=== PATIENT | male | born 1970 | race Caucasian/White ===

== ENCOUNTER 2018-11-03 20:15 | Emergency (ER) | payer BC ==
[2018-11-03] MEDS ORDERED: Acetaminophen TAB* 325 MG PO ONE (21:23)
--- NOTE | 2018-11-03 22:16 | ED ---
Upper Extremity Pain - HPI Summary HPI Summary: Patient complains of deformity and pain to fourth digit of right hand during a collision while playing hockey. Denies any other pain, injury, symptoms. No wound. - History of Current Complaint Chief Complaint: EDExtremityUpper Stated Complaint: POSS BROKEN FINGER Time Seen by Provider: 11/03/18 20:52 Hx Obtained From: Patient Mechanism Of Injury: Blunt Trauma Onset/Duration: Started Hours Ago Timing: Constant Severity Initially: Moderate Severity Currently: Moderate Pain Location: Finger Character: Dull, Aching, Throbbing Aggravating Factor(s): Movement Alleviating Factor(s): Rest, Ice Associated Signs & Symptoms: Positive: Negative - Allergies/Home Medications Allergies/Adverse Reactions: Allergies Allergy/AdvReac Type Severity Reaction Status Date / Time shellfish derived Allergy Anaphylatic Verified 11/03/18 20:26 Shock Home Medications: Home Medications NK [No Home Medications Reported] 11/03/18 [History Confirmed 11/03/18] PMH/Surg Hx/FS Hx/Imm Hx Endocrine/Hematology History: Denies: Hx Anticoagulant Therapy, Hx Diabetes, Hx Thyroid Disease Cardiovascular History: Denies: Hx Hypertension Respiratory History: Denies: Hx Asthma, Hx Chronic Obstructive Pulmonary Disease (COPD) GI History: Denies: Hx Ulcer History: Denies: Hx Dialysis, Hx Renal Disease Psychiatric History: Denies: Hx Autism - Cancer History Cancer Type, Location and Year: Prostate Infectious Disease History: Yes Infectious Disease History: Denies: Hx Clostridium Difficile, Hx Hepatitis, Hx Human Immunodeficiency Virus (HIV), Hx of Known/Suspected MRSA, Traveled Outside the [place] in Last 30 Days - Family History Known Family History: Positive: Non-Contributory - Social History Alcohol Use: Weekly Substance Use Type: Reports: None Smoking Status (MU): Never Smoked Tobacco Review of Systems Constitutional: Negative Eyes: Negative ENT: Negative Cardiovascular: Negative Respiratory: Negative Gastrointestinal: Negative Genitourinary: Negative Musculoskeletal: Other Skin: Negative Neurological: Negative Psychological: Normal All Other Systems Reviewed And Are Negative: Yes Physical Exam - Summary Physical Exam Summary: Obvious deformity to PIP joint of 4th digit of right hand. EMS intact distally. No open wound. Triage Information Reviewed: Yes Vital Signs On Initial Exam: Initial Vitals Temp Pulse Resp BP Pulse Ox 99.4 F 86 16 112/75 94 11/03/18 20:24 11/03/18 20:24 11/03/18 20:24 11/03/18 20:24 11/03/18 20:24 Vital Signs Reviewed: Yes Appearance: Positive: Well-Appearing Skin: Positive: Warm Head/Face: Positive: Normal Head/Face Inspection Eyes: Positive: Normal Neck: Positive: Supple Respiratory/Lung Sounds: Positive: Clear to Auscultation Cardiovascular: Positive: Normal Abdomen Description: Positive: Nontender Musculoskeletal: Positive: Normal Neurological: Positive: Normal Psychiatric: Positive: Normal AVPU Assessment: Alert - [place] Coma Scale Best Eye Response: 4 - Spontaneous Best Motor Response: 6 - Obeys Commands Best Verbal Response: 5 - Oriented Coma Scale Total: 15 Procedures - Joint Reduction 1 Joint Reduction Site: other Specify Other Joint Reduced: PIP joint of the fourth digit of right hand Conscious Sedation: No Reduction Attempts: 1 Pre-Procedure NV Exam: Yes Post Joint Reduction Film: joint reduced Diagnostics - Vital Signs Vital Signs Temp Pulse Resp BP Pulse Ox 11/03/18 20:24 99.4 F 86 16 112/75 94 - Laboratory Lab Statement: Any lab studies that have been ordered have been reviewed, and results considered in the medical decision making process. Course/Dx - Course Course Of Treatment: Patient complains of deformity and pain to fourth digit of right hand during a collision while playing hockey. Denies any other pain, injury, symptoms. No wound. Physical exam:Obvious deformity to PIP joint of 4th digit of right hand. EMS intact distally. No open wound. X-ray positive for dislocation of PIP joint and fourth digit of right hand. Also possible avulsion fracture of middle phalanx. PIP joint reduced without sedation and reduction confirmed by postreduction x-ray. Patient placed in a finger brace by nurse and reviewed by me. Patient advised radiology will read x-rays in the morning and patient will be called if findings warrant with recommended treatment. Patient understands and approves of plan. - Diagnoses Provider Diagnoses: Dislocation, finger closed, Closed avulsion fracture of middle phalanx of finger Discharge - Sign-Out/Discharge Documenting (check all that apply): Patient Departure - Discharge Plan Condition: Stable Disposition: HOME Patient Education Materials: Finger Dislocation (ED), Avulsion Fracture (ED) Referrals: Anahy Pickard MD [Primary Care Provider] - Antony Gayle MD [Medical Doctor] - Additional Instructions: X-ray will be read by radiology in the morning and will be called if results are different. Tylenol and ice for pain. Follow-up with orthopedics. Return to the ED for any new or worsening symptoms - Billing Disposition and Condition Condition: STABLE Disposition: Home
[2018-11-03 22:37] VITALS: BP 110/76
== END 2018-11-03 22:35 | disposition home or self-care (01) ==
LOC: ED 20:15
DX: S63.254A Unspecified dislocation of right ring finger, initial encounter (principal); S62.622A Displaced fracture of middle phalanx of right middle finger, initial encounter for closed fracture; W22.8XXA Striking against or struck by other objects, initial encounter; Y93.22 Activity, ice hockey; Y92.9 Unspecified place or not applicable
CPT/HCPCS: 26670; 73140; 99281; A9270-GY

== ENCOUNTER 2018-11-22 10:15 | Day surgery (SDC) | payer BC ==
--- NOTE | 2018-11-20 16:20 | HP ---
PREOPERATIVE HISTORY AND PHYSICAL: DATE OF ADMISSION/SURGERY: 11/22/18 DATE OF OFFICE VISIT/ENCOUNTER: 11/20/18 ATTENDING SURGEON: Alena Sultana MD.* (DICTATED BY SARAH LAWLER) PROCEDURE: Right ring finger phalanx open reduction and internal fixation. HISTORY OF PRESENT ILLNESS: This is a 48-year-old male, who sustained injury to his right ring finger playing ice hockey approximately 2 weeks ago when he collided with another player. A couple of days later, he was seen at [facility] and had an x-ray, which showed nondisplaced fracture at the PIP joint of his right ring finger. He was placed in a splint and he has been using it, but has been taking it on and off with some regularity. He is having trouble bending his finger. He denies any associated numbness or tingling. After evaluation by Dr. Sultana and review of x-rays, he has consented to proceed with surgical intervention for the fracture. PAST MEDICAL HISTORY: History of prostate cancer. PAST SURGICAL HISTORY: Prostatectomy approximately 2 weeks ago. CURRENT MEDICATIONS: None. ALLERGIES: No known drug allergies. He has an allergy to SHELLFISH. FAMILY MEDICAL HISTORY: Diabetes and prostate cancer. 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 He denies tobacco use and recreational drug use. He drinks alcohol on occasion. REVIEW OF SYSTEMS: Negative for general, cephalic, cardiovascular, respiratory , GI. : Positive for mild incontinence secondary to his recent prostatectomy. Negative for other musculoskeletal, integumentary, endocrine, neurologic, and hematologic symptoms. Infectious Diseases: Negative for MRSA, hepatitis C, HIV. PHYSICAL EXAMINATION GENERAL: Well-developed, well-nourished 48-year-old male, in no acute distress. He is alert and oriented x3. VITAL SIGNS: Height 5 feet 11 inches, weight 190 pounds. Pulse rate 60, blood pressure 112/70. HEENT: Normocephalic, atraumatic. Pupils are equal, round, and reactive to light and accommodation. Extraocular movements are intact. Throat is clear. NECK: Supple. No palpable lymph nodes. PULMONARY: Lungs are clear to auscultation bilaterally. No wheezes, rales, or rhonchi. CARDIOVASCULAR: Regular rate and rhythm. S1, S2. No murmurs, rubs, or gallops. No edema. ABDOMEN: Positive bowel sounds. Soft, nontender. NEUROLOGICAL: Alert and oriented x3. Cranial nerves II through XII are intact. Sensation is intact to light touch. MUSCULOSKELETAL: On exam of his right hand, he has significant swelling and ecchymosis of the ring finger. He has tenderness to palpation at the PIP joint. He has good alignment of the finger clinically, but can only flex to about 20 to 30 degrees. He has full extension. Skin is intact. Neurovascular function is intact. DIAGNOSTIC STUDIES: Updated x-rays, AP, lateral, and oblique of the right ring finger show a subluxed and displaced fracture of the middle phalanx at the PIP joint. IMPRESSION: Right ring finger middle phalanx fracture, which is displaced. PLAN: The patient is scheduled to undergo a right ring finger phalanx open reduction and internal fixation with Dr. Sultana on 11/22/18. He will return to the office 10 days postop for followup and suture removal. A prescription for Barataria was e-scribed to the patient's pharmacy for postoperative pain management. SARAH LAWLER [id number]/[facility] #: [id number] [facility]
[~2018-11-22 10:15] MED LIST: Buffered Lidocaine 0.9% SYRIN* 5 ML/SYR SYRINGE INTRADERM ONE; Dexamethasone IV* 4 MG/ML 1 ML (4 MG) IV SLOW PU ONE; Dexamethasone IV* 4 MG/ML 1 ML (4 MG) ONE; Famotidine IV* 10 MG/ML 2 ML (20 mg) IV ONE; Famotidine IV* 10 MG/ML 2 ML (20 mg) ONE; Lactated Ringers 1000 ML Bag* 1,000 ML IV SCH
[2018-11-22] MEDS ORDERED: ceFAZolin 2 GM PREMIX in ORs 2 GM/50 ML BAG IVPB ONE (10:26)
[2018-11-22] MEDS ORDERED: fentaNYL* 50 MCG/ML 2 ML VIAL (100 MCG VIAL) ONE ×2 (11:18→12:01)
[2018-11-22] MEDS ORDERED: Midazolam* 1 MG/ML 5 ML VIAL (5 MG) ONE (11:19)
[2018-11-22] MEDS ORDERED: Propofol* 10 MG/ML 20 ML BTL ONE (11:19)
[2018-11-22] MEDS ORDERED: Lidocaine 2% PF * 5 ML VIAL ONE (11:19)
[2018-11-22] MEDS ORDERED: Lidocaine 1% INJ* 10 MG/ML 30 ML SDV ONE (11:34)
[2018-11-22] MEDS ORDERED: Ketorolac INJ* 30 MG/ML 1 ML VIAL IV PRN (11:37)
[2018-11-22] MEDS ORDERED: DiMENhydriNATE IV* 50 MG/ML VIAL IV PUSH PRN (11:37)
[2018-11-22] MEDS ORDERED: oxyCODONE/Acetamin 5/325 MG* TAB PO PRN (11:37)
[2018-11-22] MEDS ORDERED: HYDROcodone/ACETAMIN 5-325 MG* 1 TAB PO PRN (11:37)
[2018-11-22] MEDS ORDERED: fentaNYL* 50 MCG/ML 2 ML VIAL (100 MCG VIAL) IV PRN (11:37)
[2018-11-22] MEDS ORDERED: Naloxone* 0.4 MG/ML 1 ML VIAL IV PRN (11:37)
[2018-11-22] MEDS ORDERED: Ketorolac INJ* 30 MG/ML 1 ML VIAL ONE (12:00)
[2018-11-22] MEDS ORDERED: Ondansetron INJ* 2 MG/ML VIAL ONE (12:18)
[2018-11-22 12:38] VITALS: BP 110/72
--- NOTE | 2018-11-22 21:30 | OP ---
DATE OF OPERATION: 11/22/18 [facility] DATE OF : 68 SURGEON: Dr. Sultana. KIDNEY PULLER: SARAH Jimenez. ANESTHESIA: Local with MAC. PRE-OP DIAGNOSIS: Fracture subluxation of the right ring finger PIP joint. POST-OP DIAGNOSIS: Fracture subluxation of the right ring finger PIP joint. OPERATIVE PROCEDURE: Closed reduction pinning, right ring finger PIP joint. ESTIMATED BLOOD LOSS: Zero. INDICATION FOR PROCEDURE: Yoav is a 48-year-old male who injured his right ring finger playing hockey. He initially had a nondisplaced fracture of his middle phalanx at the PIP joint, but the fracture has since displaced and he presents for open reduction and internal fixation of the right ring finger. However, we were able to accomplish the reduction with closed reduction. DESCRIPTION OF PROCEDURE: The patient was brought to the operating room and was given sedation anesthetic as a digital block with a total of 30 cc of 1% plain lidocaine. The skin of his right hand and forearm was prepped and draped in the usual sterile fashion. The hand and forearm were exsanguinated and the tourniquet elevated to 250 mmHg. With manipulation and traction, we were able to reduce the fracture fragments and they were secured with three 0.035 inch K-wires two between the fracture fragments of the middle phalanx and one across the PIP joints. The pins were bent and cut after checking their position on the C-arm and were dressed with pin caps, Xeroform, 4x4, Webril, and Coban with AlumaFoam splint. The patient tolerated the procedure well and was brought to the recovery room in good condition. [id number]/[facility] #: [id number] [facility]ish
== END 2018-11-22 13:01 | disposition home or self-care (01) ==
LOC: OREAST 10:15
PROVIDERS: ATTEND Orthopaedic Surgery
DX: S62.624A Displaced fracture of middle phalanx of right ring finger, initial encounter for closed fracture (principal); W51.XXXA Accidental striking against or bumped into by another person, initial encounter; Y93.69 Activity, other involving other sports and athletics played as a team or group; Y92.330 Ice skating rink (indoor) (outdoor) as the place of occurrence of the external cause; Z85.46 Personal history of malignant neoplasm of prostate
CPT/HCPCS: 76000; C1776; J0690; J1100; J1885; J2250; J2405; J2704; J3010